=== PATIENT | male | born 1970 | race Caucasian/White ===

== ENCOUNTER 2017-09-05 17:04 | Emergency (ER) | payer SELFPAY ==
[~2017-09-05] VITALS: Ht 165.1 cm; Wt 60.0 kg
[2017-09-05] MEDS ORDERED: CHLORDIAZEPOXIDE 25MG CAPSULE PO ONE (19:00)
[2017-09-05 19:34] LABS: BASOPHILS % 0.9 % (0.0-2.0); EOSINOPHILS % 0.4 % (0.0-5.0); HEMATOCRIT. 36.3 % (42.0-52.0); HEMOGLOBIN. 12.3 g/dL (14.0-18.0); LYMPHOCYTES % 42.6 % (20.0-50.0); MEAN CORPUSCULAR HEMOGLOBIN 33.2 pg (28.0-32.0); MEAN CORPUSCULAR VOLUME 97.6 fL (80.0-94.0); MEAN PLATELET VOLUME 7.8 fl (7.4-10.4); MONOCYTES % 12.8 % (2.0-8.0); NEUTROPHILS % 43.3 % (40.0-76.0); PLATELET 155 x1000/uL (130-400); RED BLOOD CELL COUNT 3.71 mill/uL (4.7-6.1); RED CELL DISTRIBUTION WIDTH 16.9 % (11.6-14.6)
[2017-09-05 19:36] LABS: CHLORIDE 106 mEq/L (98-107)
[2017-09-05 19:48] LABS: ETHANOL BLOOD 445 mg/dL
[2017-09-05 22:00] VITALS: BP 126/90
== END 2017-09-05 22:00 | disposition home or self-care (01) ==
LOC: ER 17:13
DX: T51.91XA Toxic effect of unspecified alcohol, accidental (unintentional), initial encounter (principal); Y92.89 Other specified places as the place of occurrence of the external cause
CPT/HCPCS: 36415; 80053; 85025; 99284; G0482